=== PATIENT | male | born 1995 | race Caucasian/White ===

== ENCOUNTER → 2017-02-08 | Outpatient (CLI) | payer BC, OTHER ==
[~2017-02-08] MED LIST: ALBU17AE3; CEPH250T; CICL6.1H4; FEXO60TA; MMT17NA; MNTL10T PO; NF-ALLE180; OLOP30.5 NSEACH; PRD10T PO; SULF-222 PO
--- NOTE | 2017-02-09 12:42 | ECHOCARDIOGRAPHY REPORT ---
DATE OF SERVICE: 02/08/2017 REFERRING PHYSICIAN: Dr. Castaneda. MEASUREMENT: LVID end diastolic 5.3, IVS thickness 1.1, LVPW thickness 1.1 left atrial diameter 3.0, ejection fraction 60%. FINDINGS: 1. Technical quality is good. 2. The left ventricle is normal in size with normal contractility, systolic function appeared to be normal, estimated ejection fraction 60%. 3. The left atrium is normal in size. No clot or thrombus were seen within the left atrium. 4. The right atrium and right ventricle are normal in size. No clot or thrombus were seen within the right side. 5. Mitral valve is normal in morphology with mild mitral regurgitation noted by color Doppler flow. No mitral valve prolapse. No mitral valve stenosis. 6. Aortic valve is trileaflet with normal opening and closing pattern. No significant aortic stenosis or regurgitation was seen. 7. Tricuspid valve is normal in morphology with mild tricuspid regurgitation noted by color Doppler flow. Doppler across tricuspid valve estimated pulmonary artery pressure of 28 plus right atrial pressure. 8. Pulmonic valve is normal in morphology with trace pulmonary regurgitation noted by color Doppler flow. 9. No pericardial effusion. CONCLUSION: 1. Normal left ventricular size and systolic function, estimated ejection fraction 60%. 2. Mild pulmonary hypertension with estimated pulmonary artery pressure of 35 mmHg. 3. Mild mitral and tricuspid regurgitation. Job ID: [id number] DocumentID: [id number] Dictated Date: 02/09/2017 08:05:28 Heel [employer]itter Date: 02/09/2017 08:23:11 Dictated By: JESUSITA VITALE MD
== END ==
LOC: CARD 08:33
PROVIDERS: ATTEND Internal Medicine Cardiovascular Disease
DX: I10 Essential (primary) hypertension (principal)
CPT/HCPCS: 93306

== ENCOUNTER → 2017-02-23 | Outpatient (CLI) | payer BC ==
[~2017-02-23] MED LIST changes: +CATHETER FLUSH 10 ML SYR IV PRN; +IOHEXOL 350 MG/ML 150 ML (OMNIPAQUE 350) VIAL IV ONE; +NS 100 ML (IVPB) BAG IV ONE
--- NOTE | 2017-02-23 10:06 | Diagnostic Imaging Report ---
PROCEDURE: CT angiography of the chest with contrast. TECHNIQUE: Multiple contiguous axial images were obtained through the chest after uneventful bolus administration of intravenous contrast. Reconstructed CTA MIP acquisitions were also performed. INDICATION: Hypertension. FINDINGS: There is good opacification of the pulmonary arteries with no filling defects to suggest pulmonary embolism. The thoracic aorta is normal in caliber. No dissection. The anterior mediastinal soft tissue lesion is most likely the thymus, commonly seen at the patient's age. The cardiac size is normal. There is no pericardial or pleural effusion. There is no mediastinal or hilar lymphadenopathy. A minimally enlarged right hilar lymph node measuring 1.2 cm in size is of uncertain significance. The lungs demonstrate no significant consolidation, mass, or suspicious nodule. Sections in the upper abdomen demonstrate no significant abnormality. The osseous structures appear grossly unremarkable. IMPRESSION: 1. No PE or aortic dissection. 2. Minimally enlarged right hilar lymph node of uncertain significance. Dictated by: Dictated on workstation # [id number]
== END ==
LOC: RAD 08:42
PROVIDERS: ATTEND Internal Medicine Cardiovascular Disease
DX: I10 Essential (primary) hypertension (principal)
CPT/HCPCS: 71275